=== PATIENT | female | born 2000 | race Caucasian/White ===

== ENCOUNTER 2021-05-31 00:45 | Emergency (ER) | payer BC ==
[~2021-05-31] VITALS: Ht 160 cm; Wt 56.7 kg
[2021-05-31 00:55] VITALS: BP 136/89
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
--- NOTE | 2021-05-31 05:20 | Diagnostic Imaging Report ---
INDICATION: 20-year-old female presents with a foreign body within the rectum. COMPARISONS: None FINDINGS: Single KUB shows normal bowel gas pattern with scattered gas in small and large bowel with gas seen to the rectum. A radiopaque foreign body/electronic device is projected over the rectal region. There is also what appears to be an umbilical piercing overlying the midline. Bony abdomen/pelvis is unremarkable. IMPRESSION: 1. Nonspecific nonobstructive bowel gas pattern. 2. Radiopaque foreign body/electronic device projected over the rectum 3. Most likely radiopaque piercing of the umbilicus Dictated by: Dictated on workstation # [id number]
== END 2021-05-31 01:37 | disposition home or self-care (01) ==
LOC: ER 00:45
DX: T18.5XXA Foreign body in anus and rectum, initial encounter (principal)
CPT/HCPCS: 74018